=== PATIENT | female | born 1985 | race African-American/Black ===

== ENCOUNTER 2016-11-27 11:19 | Emergency (ER) | payer OTHER ==
[~2016-11-27] VITALS: Ht 162.6 cm; Wt 77.2 kg
[~2016-11-27 11:19] MED LIST: FLEXERIL; IBUPROFEN; OXYCODONE; [UNRECOGNIZED DRUG - OTHER]
[2016-11-27] MEDS ORDERED: OxyCODONE HCL/ACETAMINOPHEN 5-325 MG TABLET PO ONE (13:15)
[2016-11-27 13:31] VITALS: BP 128/75
== END 2016-11-27 13:35 | disposition home or self-care (01) ==
LOC: EMS 11:20
DX: S83.91XA Sprain of unspecified site of right knee, initial encounter (principal); Z88.8 Allergy status to other drugs, medicaments and biological substances; Z88.5 Allergy status to narcotic agent; X58.XXXA Exposure to other specified factors, initial encounter; Y93.B9 Activity, other involving muscle strengthening exercises; Y92.89 Other specified places as the place of occurrence of the external cause; Y99.8 Other external cause status
CPT/HCPCS: 29505; 99283